=== PATIENT | male | born 1990 | race Hispanic/Latino ===

== ENCOUNTER 2025-01-20 20:37 | Emergency (ER) | payer OTHER ==
[~2025-01-20] VITALS: Ht 182.9 cm; Wt 95.3 kg
[2025-01-20 20:37] VITALS: TEMP 98.2
[2025-01-20] MEDS ORDERED: DILTIAZEM HCL 5 MG/ML 5 ML VIAL IV STA (20:49)
[2025-01-20 20:52] LABS: BASOPHILS % 0.3 % (0.0-1.0); EOSINOPHILS % 0.3 % (0.0-6.0); HEMATOCRIT 44.1 % (38.2-49.6); HEMOGLOBIN 15.7 g/dL (14.0-18.0); LYMPHOCYTES # (AUTO) 2.1 (1.0-3.2); LYMPHOCYTES % 28.7 % (18.0-39.1); MEAN CORPUSCULAR HEMOGLOBIN 31.2 pg (28-32); MEAN CORPUSCULAR HGB CONC 35.6 g/dL (31-35); MEAN CORPUSCULAR VOLUME 87.7 fL (81-99); MONOCYTES # (AUTO) 0.4 (0.2-0.8); MONOCYTES % 5.2 % (4.4-11.3); NEUTROPHILS # (AUTO) 4.7 (2.1-6.9); NEUTROPHILS % 64.7 % (38.7-80.0); PLATELET COUNT 249 x10e3/uL (140-360); RED BLOOD COUNT 5.03 x10e6/uL (4.3-5.7); RED CELL DISTRIBUTION WIDTH 12.1 % (11.7-14.4); WHITE BLOOD COUNT 7.32 x10e3/uL (4.8-10.8)
[2025-01-20] MEDS: METOPROLOL TARTRATE INJ 1 MG/ML VIAL IV ONE (20:57)
[2025-01-20] MEDS ORDERED: METOPROLOL SUCC50 MG PO (21:06)
[2025-01-20] MEDS ORDERED: FLECAINIDE ACE100 MG PO ×2 (21:08→23:16)
[2025-01-20] MEDS ORDERED: ELIQUIS5 MG PO (21:09)
[2025-01-20] MEDS ORDERED: VYVANSE70 MG (21:12)
[2025-01-20] MEDS ORDERED: LIPITOR20 MG PO (21:12)
[2025-01-20] MEDS ORDERED: WELLBUTRIN XL300 MG PO (21:12)
[2025-01-20] MEDS ORDERED: VITAMIN D31250 MCG (21:12)
[2025-01-20] MEDS ORDERED: TRICOR48 MG PO (21:12)
[2025-01-20] MEDS ORDERED: VITAMIN B12-FO1 EACH (21:12)
[2025-01-20 21:19] LABS: ALANINE AMINOTRANSFERASE 36 IU/L (0-55); ALBUMIN/GLOBULIN RATIO 1.4 (0.8-2.0); ALKALINE PHOSPHATASE 72 IU/L (40-150); ANION GAP 17.6 mmol/L (8-16); BILIRUBIN,TOTAL 0.6 mg/dL (0.2-1.2); BLOOD UREA NITROGEN 15 mg/dL (7-26); BUN/CREATININE RATIO 11 (6-25); CALCIUM 9.9 mg/dL (8.4-10.2); CARBON DIOXIDE 21 mmol/L (22-29); CHLORIDE 105 mmol/L (98-107); CREATINE KINASE 137 IU/L (30-200); CREATININE, SERUM 1.34 mg/dL (0.72-1.25); EST GLOMERULAR FILTRATION RATE 71 ML/MIN (>=60); GLUCOSE 112 mg/dL (74-118); POTASSIUM 3.6 mmol/L (3.5-5.1); SODIUM 140 mmol/L (136-145); TOTAL PROTEIN 8.6 g/dL (6.5-8.1)
[2025-01-20 21:31] LABS: TROPONIN I < 0.001 ng/mL (0-0.300)
[2025-01-20] MEDS: FLECAINIDE ACETATE 100 MG TAB PO ONE (22:17)
[2025-01-20] MEDS: METOPROLOL SUCCINATE 50 MG TAB XL PO ONE (22:18)
[2025-01-20 23:03] VITALS: PULSE 82; RESP 14
[2025-01-20 23:22] VITALS: BP 128/86; PULSE 80; RESP 13; TEMP 98.5; O2SAT 96
== END 2025-01-20 23:26 | disposition home or self-care (01) ==
LOC: ER 20:53
DX: R00.0 Tachycardia, unspecified (principal); R07.89 Other chest pain; I10 Essential (primary) hypertension; I48.91 Unspecified atrial fibrillation; E78.5 Hyperlipidemia, unspecified
CPT/HCPCS: 36415; 71045; 80053; 82550; 84484; 85025; 85379; 93005; 99284